=== PATIENT | male | born 1990 | race Caucasian/White ===

== ENCOUNTER 2017-11-27 22:56 | Emergency (ER) | payer OTHER ==
[~2017-11-27] VITALS: Ht 177.8 cm; Wt 140.6 kg
--- NOTE | 2017-11-27 23:27 | ED PSYCHIATRIC COMPLAINT ---
History of Present Illness General Chief Complaint: Psychiatric Related Complaint Stated Complaint: SI Source: patient, family Exam Limitations: no limitations Vital Signs & Intake/Output Vital Signs & Intake/Output Vital Signs Date Time Temp Pulse Resp B/P B/P Pulse O2 O2 Flow FiO2 Mean Ox Delivery Rate 11/28 0212 97.6 68 20 120/61 98 CPAP 2.0L 11/28 0000 Room Air 11/27 2300 97.7 91 18 150/93 98 Room Air ED Intake and Output 11/28 0000 11/27 1200 Intake Total 0 Output Total Balance 0 Intake, Oral 0 Patient 310 lb Weight Allergies Coded Allergies: amoxicillin (From AUGMENTIN) (Severe, TONGUE SWELLING 11/27/17) clavulanic acid (From AUGMENTIN) (Severe, TONGUE SWELLING 11/27/17) Reconcile Medications Escitalopram Oxalate 10 MG TABLET 1 TAB PO DAILY DEPRESSION (Reported) Triage Note: PT TO TRIAGE WITH +SI. PER PT HAS BEEN DEPRESSED SINCE MONDAY, HAS HX OF. PER PT TONIGHT DEPRESSION GOT WORSE AND PT FELT IF HE DID NOT COME TO THE ER HE WAS SCARED HE WOULD WAKE UP AND DO SOMETHING STUPID. ?PLAN TO ACCESS PILLS IN HIS HOUSE. DENIES HI, DENIES ETOH OR DRUG USE. PT CALM AND COOPERATIVE IN TRIAGE. POLICIES AND PROCEDURES EXPLAINED. [facility] CALLED FOR WANDING. Triage Nurses Notes Reviewed? yes HPI: Patient presents with increasing depression with suicidal thoughts. There is no plan. Patient states everything has just been escalating. Patient denies any hallucinations. Patient denies any ingestion. Patient is, cooperative. Patient felt unsafe at home so he comes to the ER for evaluation. Past History Travel History Traveled to [place] past 21 day No Medical History Any Pertinent Medical History? 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 No Review of Systems Review of Systems Constitutional: Reports: no symptoms. EENTM: Reports: no symptoms. Respiratory: Reports: no symptoms. Cardiovascular: Reports: no symptoms. GI: Reports: no symptoms. Genitourinary: Reports: no symptoms. Musculoskeletal: Reports: no symptoms. Skin: Reports: no symptoms. Neurological/Psychological: Reports: see HPI, depressed. Hematologic/Endocrine: Reports: no symptoms. Immunologic/Allergic: Reports: no symptoms. All Other Systems: Reviewed and Negative Physical Exam Physical Exam General Appearance: well developed/nourished, no apparent distress, alert, awake , mild distress Head: atraumatic, normal appearance Eyes: Bilateral: PERRL, EOMI. Ears, Nose, Throat: normal pharynx, normal ENT inspection, hearing grossly normal Neck: normal inspection, supple, full range of motion Respiratory: normal breath sounds, chest non-tender, no respiratory distress, lungs clear Cardiovascular: regular rate/rhythm, normal peripheral pulses Gastrointestinal: normal bowel sounds, soft, non-tender, no organomegaly Extremities: normal range of motion Neurological/Psychiatric: no motor/sensory deficits, awake, alert, normal mood/ affect, calm, oriented x 3 Appearance/Memory/Insight: appropriate appearance Behavoir/Eye Contact/Speech: cooperative, normal speech, good eye contact Thoughts/Hallucinations: normal thought pattern, no apparent hallucination Skin: intact, normal color, warm/dry SAD PERSONS Done? CRISIS CONSULT OBTAINED Progress Differential Diagnosis: drug intoxication, drug overdose, drug withdrawal, electrolyte abnormality Plan of Care: Orders Procedure Date/time Status Regular Diet 11/28 B Active CONTIN. POSITIVE AIRWAY PRESS 11/27 2328 Complete Continuous Observation Monitor 11/27 2308 Active URINE DRUGS OF ABUSE 11/27 2308 Complete URINALYSIS 11/27 2308 Complete ETHANOL 11/27 2308 Complete COMPREHENSIVE METABOLIC PANEL 11/27 2308 Complete CBC WITHOUT DIFFERENTIAL 11/27 2308 Complete ED CRISIS PSYCH CONSULT 11/27 2308 Active Current Medications Sig/Ale Start time Last Medication Dose Stop Time Status Admin Escitalopram Oxalate 10 MG 0800 11/28 0800 UNVr (Lexapro) Laboratory Tests 11/27/17 2354: Urine Opiates Screen < 100, Methadone Screen 42, Barbiturate Screen < 60, Ur Phencyclidine Scrn < 6.00, Amphetamines Screen < 100, U Benzodiazepines Scrn < 85, Urine Cocaine Screen < 50, Urine Cannabis Screen < 5.00, Urine Color YEL, Urine Clarity CLEAR, Urine pH 6.0, Ur Specific [place] 1.020, Urine Protein NEG, Urine Ketones NEG, Urine Nitrite NEG, Urine Bilirubin NEG, Urine Urobilinogen 0.2, Ur Leukocyte Esterase NEG, Ur Microscopic EXAM NOT REQUIRED, Urine Hemoglobin NEG, Urine Glucose NEG 11/27/17 2350: Anion Gap 14, Estimated GFR > 60, BUN/Creatinine Ratio 21.3, Glucose 94, Calcium 9.6, Total Bilirubin 0.4, AST 25, ALT 45, Alkaline Phosphatase 80, Total Protein 7.0, Albumin 4.2, Globulin 2.8, Albumin/Globulin Ratio 1.5, CBC w Diff NO MAN DIFF REQ, RBC 5.00, MCV 83.4, MCH 28.8, MCHC 34.5, RDW 12.6, MPV 10.4, Gran % 64.2, Lymphocytes % 26.5, Monocytes % 7.4, Eosinophils % 1.7, Basophils % 0.2, Absolute Granulocytes 6.8 H, Absolute Lymphocytes 2.8, Absolute Monocytes 0.8 H, Absolute Eosinophils 0.2, Absolute Basophils 0, Serum Alcohol < 10.0 Hand-Off Endorsed To: Mei BHAT,Helio Coronel Endorsed Time: 0700 Pending: consult (CRISIS) Departure Departure Disposition: STILL A PATIENT Condition: Stable Clinical Impression Primary Impression: Depression Secondary Impressions: Suicidal ideation Departure Forms: Customer Survey General Discharge Information
[2017-11-28] MEDS ORDERED: ESCITALOPRAM OX10 MG PO (00:02)
[2017-11-28 00:16] LABS: ABSOLUTE BASOPHIL COUNT 0 /CUMM (0.0-0.2); ABSOLUTE EOSINOPHIL COUNT 0.2 /CUMM (0.0-0.7); ABSOLUTE GRANULOCYTE CT 6.8 /CUMM (1.4-6.5); ABSOLUTE LYMPH COUNT 2.8 /CUMM (1.2-3.4); ABSOLUTE MONOCYTE COUNT 0.8 /CUMM (0.10-0.60); BASOPHIL % 0.2 % (0.0-2.0); EOSINOPHIL % 1.7 % (0-5); GRANULOCYTE % 64.2 % (42.2-75.2); HEMATOCRIT 41.8 % (42-52); MEAN CORPUSCULAR HGB 28.8 PG (27.0-31.0); MEAN CORPUSCULAR HGB CONC 34.5 G/DL (33.0-37.0); MEAN CORPUSCULAR VOLUME 83.4 FL (80.0-94.0); MEAN PLATELET VOLUME 10.4 FL (7.4-10.4); PLATELET COUNT 198 /CUMM (130-400); RBC DISTRIBUTION WIDTH 12.6 % (11.5-14.5); WHITE BLOOD CELL COUNT 10.5 /CUMM (4.8-10.8)
--- NOTE | 2017-11-28 08:53 | ED PSYCH CRISIS CONSULTATION ---
See Addendum Crisis Consult Basic Assessment Date of Consult: 11/28/17 Responsible Person/Accompanied By: self Insurance Authorization: Insurance #1: Insurance name: DANTE Phone number: Policy number: [id number] Group number: Authorization number: ED Provider: Patient's ED Provider: Abdi BHAT,Raoul Mckee Primary Care Physician: Patient's PCP: Rufina BHAT,Lukas Dillard PCP's [facility] [employer] [phone] Chief Complaint: Psychiatric Related Complaint Patient's Quote: I just didn't feel safe at my house Present Illness: Pt is a 27 yo male presenting on his own to [facility] last evening with reports of SI. Pt reports not feeling safe to be at home and was thinking of taking an overdose of alleve pm which he keeps in the bedroom. Pt states "I just didn't feel safe at home" and called his therapist Alethea Mendez ASHLEIGH who instructed him to go to ED for evaluation. Pt reports living at home with parents and gf of past 4 yrs. Pt reports increased fighting/arguing with gf past weekend as significant stressor. Pt reports having trust issues and becomes obsessive regarding text messages. Pt reports no prior suicide attempts.Pt reports no prior inpatient treatment hx and first outpatient episode began with Ms Mendez in June for depressed mood. Pt reports mood has become more depressed and labile. Pt reports having first SI episode in Aug 2017. He reports then beginning prescription of Lexapro at [facility]. He reports feeling unsure if Lexapro is helping as he reports having good days and bad. 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 He reports having horrible sleep (CPAP machine), no energy and decreased self-esteem. Pt states "I don't want to do anything. Pt also reports "stress eating" and is significantly overweight. Pt reports being a social drinker (a couple drinks per month) and occasional cannabis user (last use 6 months ago). SSRS administered. Pt risk factors include: SI with method, recent significant event (fighting with gf). Protective factors including" identifies reasons for living, responsibility to family, supportive social network. Case reviewed with Dr Stein with recommendation that pt meets criteria for inpatient psychiatric treament for mood stability and medication evaluation. Pt in agreement with plan and informed a bed search will be required to find a available bed. Patient's Address: [address] [place] [address] Other Phone Number: Who Do You Live With? Family (parents and gf) Family/Informants Interviewed: collateral provided by pt mother Linda . She reports pt has fluctuating mood but recently more depressed and irritable. She reports pt makes statements of SI but she doesn't think he would act on it. She reports relationship with his gf is stressful/conflict. She also reports pt has been out of work and may be anxious about upcoming return to work. Allergies - Coded Allergies: amoxicillin (From AUGMENTIN) (Severe, TONGUE SWELLING 11/27/17) clavulanic acid (From AUGMENTIN) (Severe, TONGUE SWELLING 11/27/17) Current Medications - Scheduled Medications Escitalopram Oxalate 10 MG TABLET 1 TAB PO DAILY DEPRESSION #45 (Reported) Entered as Reported by Celestina Crenshaw on 11/28/17 0002 Laboratory Results: Laboratory Tests 11/27/17 2354: Urine Opiates Screen < 100, Methadone Screen 42, Barbiturate Screen < 60, Ur Phencyclidine Scrn < 6.00, Amphetamines Screen < 100, U Benzodiazepines Scrn < 85, Urine Cocaine Screen < 50, Urine Cannabis Screen < 5.00, Urine Color YEL, Urine Clarity CLEAR, Urine pH 6.0, Ur Specific [place] 1.020, Urine Protein NEG, Urine Ketones NEG, Urine Nitrite NEG, Urine Bilirubin NEG, Urine Urobilinogen 0.2, Ur Leukocyte Esterase NEG, Ur Microscopic EXAM NOT REQUIRED, Urine Hemoglobin NEG, Urine Glucose NEG 11/27/17 2350: Anion Gap 14, Estimated GFR > 60, BUN/Creatinine Ratio 21.3, Glucose 94, Calcium 9.6, Total Bilirubin 0.4, AST 25, ALT 45, Alkaline Phosphatase 80, Total Protein 7.0, Albumin 4.2, Globulin 2.8, Albumin/Globulin Ratio 1.5, CBC w Diff NO MAN DIFF REQ, RBC 5.00, MCV 83.4, MCH 28.8, MCHC 34.5, RDW 12.6, MPV 10.4, Gran % 64.2, Lymphocytes % 26.5, Monocytes % 7.4, Eosinophils % 1.7, Basophils % 0.2, Absolute Granulocytes 6.8 H, Absolute Lymphocytes 2.8, Absolute Monocytes 0.8 H, Absolute Eosinophils 0.2, Absolute Basophils 0, Serum Alcohol < 10.0 Past History Past Medical History Neurological: NONE EENT: NONE Cardiovascular: NONE Respiratory: obstructive sleep apnea Gastrointestinal: NONE Hepatic: NONE Renal: NONE Musculoskeletal: NONE Psychiatric: anxiety, depression Endocrine: NONE Blood Disorders: NONE Cancer(s): NONE 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 Past Surgical History Surgical History: non-contributory Psychosocial History Strengths/Capabilities: works full-time; supportive family; aware of treatment needs Psychiatric Treatment History Psych Treatment Psychiatric Treatment Yes Inpatient Treatment No Outpatient Treatment Yes Location of Treatment [facility]; Alethea Mendez [facility] Reason for Treatment depression Dates of Treatment since Jun 2017 Response to Treatment engaged but declining mood Diagnosis by History: depression Substance Use/Abuse History Drug Use/Abuse Substances Used/Abused No Substance Abuse Treatment Substance Abuse Treatment Past Substance Abuse [place] No Comments: pt reports social drinking (intoxicated x3 in lifetime) occasional cannabis-last use 6 months ago. Current Mental Status Mental Status Orientation: Person, Place, Situation Affect: Depressed Speech: WNL Neuro-vegetative: Anhedonia, Appetite Increased, Energy Decreased, Helpless, Loss of Interest, Sleep Disturbance Appearance Appearance- Dress/Hygiene: hospital gown; disheveled; overweight; sitting upright; engaged Behaviors Thought Process: WNL Thought Content: WNL Memory: WNL Insight: Fair SI/HI Risk Assessment Past Suicidal Ideation/Attempts Yes Current Suicidal Ideation/Att Yes Past Homicidal Ideation/Att: No Current Homicidal Ideation/Attempts No Degree of Intent: Thoughts/No Intent Danger To: Self Risk Factors: access to lethal means, chronic/serious med cond., high anxiety/ distress, male Lethality Ratin PTSD Checklist PTSD Done? patient declined ED Management Sitter: Yes Restraints: No DSM5/PS Stressors/Medical Prob Diagnosis' (DSM 5, Stressors, Medical): Unspecified Depressive D/O F32.9 relationship conflict medical leave from work overweight Current GAF: 25 Comments: pt reporting increased episodes of depression, labile mood with SI. Pt reports thoughts last night of overdosing on his alleve pm or father's pain pills. Departure Disposition Psych Medical Clearance Date: 11/28/17 Medically Cleared at: 0730 Time Started: 0730 Time Ended: 08 Psychiatrist Consulted: Sidra Stein MD Date Disposition Established: 11/28/17 Time Disposition Established: 929 Plan for Disposition - Modality: Bed Search Rationale for Disposition: Pt meets criteria for inpatient psychiatric treatment to stabilize mood and assess medications Referrals Rufina BHAT,Lukas Dillard (PCP/Family)
[2017-11-28 18:03] VITALS: BP 138/57
== END 2017-11-28 16:30 | disposition short-term general hospital (02) ==
LOC: ERH 22:56
PROVIDERS: Emergency Medicine
DX: F32.9 Major depressive disorder, single episode, unspecified (principal); R45.851 Suicidal ideations
CPT/HCPCS: 80307; 81003; G0463; G0480